=== PATIENT | male | born 1970 | race Hispanic/Latino ===

== ENCOUNTER 2017-01-11 16:06 | Inpatient (IN) | payer MEDICAID ==
--- NOTE | 2017-01-11 17:00 | C.PDOC ---
History Of Present Illness 46 y/o male presents to ED requesting detox from heroin and Benzo. Patient states last time used was x2 hours ago. Patient is pre-screened and denies ETOH or other substance use. No complaints of withdrawal at this time. Time Seen by Provider: 01/11/17 16:29 Chief Complaint (Nursing): Substance Abuse History Per: Patient History/Exam Limitations: no limitations Onset/Duration Of Symptoms: Hrs Current Symptoms Are (Timing): Still Present Past Medical History Reviewed: Historical Data, Nursing Documentation, Vital Signs Vital Signs: Last Vital Signs Temp 98.2 F 01/11/17 16:21 Pulse 104 H 01/11/17 16:21 Resp 20 01/11/17 16:21 BP 143/86 01/11/17 16:21 Pulse Ox 95 01/11/17 17:08 Family History: States: No Known Family Hx - Social History Hx Alcohol Use: Yes Hx Substance Use: Yes - Immunization History Hx Tetanus Toxoid Vaccination: No Hx Influenza Vaccination: No Review Of Systems Constitutional: Negative for: Fever, Chills Cardiovascular: Negative for: Chest Pain Respiratory: Negative for: Shortness of Breath Gastrointestinal: Negative for: Nausea, Vomiting, Diarrhea Neurological: Negative for: Headache Psych: Negative for: Anxiety Physical Exam - Physical Exam Appears: No Acute Distress Skin: Normal Color, Warm Head: Atraumatic, Normacephalic Eye(s): bilateral: Normal Inspection, PERRL, EOMI Oral Mucosa: Moist Cardiovascular: Rhythm Regular Respiratory: Normal Breath Sounds, No Rales, No Rhonchi, No Wheezing Gastrointestinal/Abdominal: Soft, No Tenderness, No Guarding, No Rebound Neurological/Psych: Oriented x3, Normal Speech, Normal Cognition, Other (No focal deficits) ED Course And Treatment - Laboratory Results Result Diagrams: 01/11/17 17:09 01/11/17 17:09 O2 Sat by Pulse Oximetry: 95 Medical Decision Making Medical Decision Making: Labs ordered and reviewed. In my clinical judgment patient is medically cleared and stable for detox admission. As per dockworker Bette patient was accepted to Dr Hilario service for detox of opiate use disorder Disposition Counseled Patient/Family Regarding: Need For Followup - Disposition Disposition: HOSPITALIZED Disposition Time: 18:18 Condition: STABLE - POA Present On Arrival: None - Clinical Impression Clinical Impression: Opiate dependence - PA / [employer] / Resident Statement /DO has reviewed & agrees with the documentation as recorded. - Scribe Statement The provider has reviewed the documentation as recorded by the Scribe Renny Kapadai All medical record entries made by the Sharitaibe were at my direction and personally dictated by me. I have reviewed the chart and agree that the record accurately reflects my personal performance of the history, physical exam, medical decision making, and the department course for this patient. I have also personally directed, reviewed, and agree with the discharge instructions and disposition. Decision To Admit - Pt Status Changed To: Hospital Disposition Of: Inpatient - Admit Certification Admit to Inpatient:: After my assessment, the patient will require hospitalization for at least two midnights. This is because of the severity of symptoms shown, intensity of services needed, and/or the medical risk in this patient being treated as an outpatient. - InPatient: Physician Admission Certification: I certify that this patient requires 2 or more midnights of care for the following reason:: Patient for inpatient detox of opiate use disorder under Dr Hilario service - . Bed Request Type: Detox Admitting Physician: Iveth Hilario Patient Diagnosis: Opiate dependence
[2017-01-11 17:13] LABS: BASO % 0.3 % (0.0-2.0); EOS # 0.1 K/uL (0.0-0.7); EOS % 1.3 % (0.0-4.0); HEMATOCRIT 42.3 % (35.0-51.0); LYMPH # 1.9 K/uL (1.0-4.3); LYMPH % 36.6 % (20.0-40.0); MEAN CELL VOLUME 92.2 fL (80.0-94.0); MEAN CORPUSCULAR HEMOGLOBIN 30.5 pg (27.0-31.0); MEAN CORPUSCULAR HGB CONC 33.1 g/dL (33.0-37.0); MEAN PLATELET VOLUME 7.3 fL (7.2-11.7); MONO # 0.3 K/uL (0.0-0.8); MONO % 5.1 % (0.0-10.0); NRBC % 0.1 % (0.0-2.0); RED CELL DISTRIBUTION WIDTH 15.1 % (11.5-14.5); WHITE BLOOD COUNT 5.2 K/uL (4.8-10.8)
[2017-01-11 17:19] LABS: RBC URINE 1 /hpf (0-3); URINE BILIRUBIN NEGATIVE (NEGATIVE); URINE BLOOD NEGATIVE (NEGATIVE); URINE COLOR Yellow (YELLOW); URINE GLUCOSE (UA) NORMAL (Normal); URINE KETONE NEGATIVE (NEGATIVE); URINE LEUKOCYTE ESTERASE NEG Leu/uL (Negative); URINE PROTEIN NEGATIVE (NEGATIVE); URINE UROBILINOGEN NORMAL mg/dL (0.2-1.0); WBC URINE < 1 /hpf (0-5)
[2017-01-11 18:07] LABS: CHLORIDE 98 mmol/L (98-107); POTASSIUM 4.3 mmol/L (3.6-5.2); SODIUM 139 mmol/L (132-148)
[2017-01-11 18:09] LABS: AST/SGOT 82 U/L (17-59); BILIRUBIN,TOTAL 0.6 mg/dL (0.2-1.3); CARBON DIOXIDE 31 mmol/L (22-30); GFR AFRICAN-AMERICAN > 60
[2017-01-11 18:10] LABS: ALKALINE PHOSPHATASE 57 U/L (38-126); ALT/SGPT 102 U/L (21-72); BLOOD UREA NITROGEN 10 mg/dL (9-20); CALCIUM 8.8 mg/dl (8.6-10.4); GLUCOSE,RANDOM 101 mg/dL (75-110); TOTAL PROTEIN 7.9 g/dL (6.3-8.3)
[2017-01-11 18:11] LABS: ALCOHOL SERUM < 10 mg/dl (0-10)
[2017-01-11 18:39] VITALS: RESP 18
--- NOTE | 2017-01-12 13:16 | PCM.PSYCH ---
Initial Psychiatric Evaluation - Initial Psychiatric Evaluation Type of Admission: Voluntary Legal Status: Capacity Chief Complaint (in patient's own words): "I feel alright." History of Present Illness and Precipitating Events: This is a 45yo male, long history of opiate abuse, came to the ED to get help in opiate detox. He states that he is single with 2 kids who live with him at [place]. 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 He states that he snorts about 5 bags of heroin a day for the past 15 years. He states that his longest sobriety was 6 months but no major life events contributed to his relapse. He states that he was in detox and rehab about 1 year ago in [place] and in [place]. He says that he drinks about 12 packs of alcohol every night and smokes a pack of cigarettes a day for the past 5 years. He attempted to quit cold turkey in the past but was unsuccessful. He has a history of probation and snf time, stating that he just got out of snf about a month ago for shoplifting. Currently he states that he feels alright and has no complaints. He denies nausea, vomiting, abdominal pain, and body aches. He also denies S/I, H/I, anxiety, and hallucinations. He states that he slept well, awakening twice to use the restroom. He appears tired but doesnt appear to be disorganized or disheveled. Past medical history: denies Past psych history: denies Family history: denies Medications: denies Allergies: denies Current Medications: Active Medications Generic Name Dose Route Start Last Admin Trade Name Adanq PRN Reason Stop Dose Admin Lorazepam 2 mg 01/11/17 18:45 01/12/17 13:12 Ativan PO 01/16/17 18:44 2 mg Q4 BOZENA Administration Taper Nicotine 1 patch 01/12/17 10:00 01/12/17 11:16 Nicoderm Cq TD Not Given DAILY BOZENA Trazodone HCl 50 mg 01/11/17 18:37 01/11/17 22:54 Desyrel PO 50 mg HS PRN Administration Insomnia Past Psychiatric History - Past Psychiatric History Previous Treatment History: Inpatient Pertinent Medical Hx (Current Medical&Sleep Prob, Allergies): Allergies Allergy/AdvReac Type Severity Reaction Status Date / Time FISH Allergy SWELLING Verified 01/12/17 13:16 No Known Home Med 01/11/17 Review of Systems - Review of Systems All systems: reviewed and no additional remarkable complaints except - Psychiatric Psychiatric: Anxiety, Irritability Mental Status Examination - Personal Presentation Personal Presentation: Looks stated age - Affect Affect: Constricted - Motor Activity Motor Activity: Calm - Reliability in Providing Information Reliability in Providing Information: Good - Speech Speech: Organized - Mood Mood: Anxious - Formal Thought Process Formal Thought Process: No Impairment - Cognitive Functions Orientation: Person, Place, Situation, Time Sensorium: Alert Attention/Concentration: Attentive Abstract Thinking: [place] Estimate of Intelligence: Below average Judgement: Imparied, as evidence by: Poor judgement, Intact, as evidence by: Insight regarding need for hospitalization - Risk Risk: Withdrawal, Diminished functioning - Strength & Assets Inventory Strength & Assets Inventory: Cooperative DSM 5 DX - DSM 5 DSM 5 Diagnosis: Opioid use disorder severe Opioid withdrawal Alcohol use disorder severe Alcohol withdrawal uncomplicated - Recommended/Plan of Treatment Treatment Recommendations and Plan of Treatment: Opioid use disorder severe CBT Psychoeducation Supportive therapy, individual therapy Use VT for abstinence Opioid withdrawal CBT Psychoeducation Supportive therapy, individual therapy Clonidine when necessary Subutax taper Alcohol use disorder severe CBT Psychoeducation Supportive therapy, individual therapy Use VT for abstinence Alcohol withdrawal uncomplicated CBT Psychoeducation Supportive therapy, individual therapy Ativan when necessary - Smoking Cessation Smoking Cessation Initiated: No
[2017-01-12] MEDS: Multiple Vitamins Tab PO SCH (13:37)
[2017-01-13] MEDS: Multiple Vitamins Tab PO SCH (11:02)
--- NOTE | 2017-01-13 18:13 | PCM.PYCHPN ---
Psychiatric Progress Note - Psychiatric Progress Note Patient seen today, length of contact: 15 minutes Patient Chief Complaint: I'm better with the treatment Problems Identified/Issues Discussed: Patient seen. Chart reviewed. Case discussed with the staff. Issues related to illness and treatment were discussed with the patient. Reported compliant with treatment with no adverse affects. Tolerating treatment very well. Patient is getting treatment only for benzos and alcohol withdrawal and not for opiate withdrawal as patient is scheduled to get his next Vivitrol shot. His time of evaluation, patient was awake alert oriented 3, had no delusions, no auditory or visual hallucinations, no suicidal ideations or homicidal ideations. Medical Problems: None reported Diagnostic Results: Reviewed DSM 5 Symptoms Update: Improvement with treatment Medication Change: No Medical Record Reviewed: Yes Mental Status Examination - Cognitive Function Orientation: Person, Place, Situation, Time Memory: Intact Attention: WNL Concentration: WNL Association: WNL Fund of Knowledge: [facility] Decription of patient's judgement and insights: Fair - Mood Mood: Neutral - Affect Affect: Other (Appropriate) - Speech Speech: Appropriate - Formal Thought Process Formal Thought Process: No Impairment Psychotic Thoughts and Behaviors: None - Suicidal Ideation Suicidal Ideation: No - Homicidal Ideation Homicidal Ideation: No Goal/Treatment Plan - Goal/Treatment Plan Need for Continued Stay: Remain at risks for inpatient hospitalization, Discharge may exacerbated symptoms, Severe functional impairment Progress Toward Problem(s) and Goals/Treatment Plan: Patient education Supportive therapy Continue treatment as before Estimated Date of D/C: 01/17/17 - Smoking Cessation Smoking Cessation Initiated: Yes
[2017-01-14] MEDS: Multiple Vitamins Tab PO SCH (11:19)
--- NOTE | 2017-01-14 12:11 | PCM.PYCHPN ---
Psychiatric Progress Note - Psychiatric Progress Note Patient seen today, length of contact: 15 minutes Patient Chief Complaint: I'm much better with the treatment Problems Identified/Issues Discussed: Patient seen. Chart reviewed. Case discussed with the staff. Issues related to illness and treatment were discussed with the patient. Reported compliant with treatment with no adverse affects. Tolerating treatment very well. Patient is getting treatment only for benzos and alcohol withdrawal and not for opiate withdrawal as patient is scheduled to get his next Vivitrol shot. His time of evaluation, patient was awake alert oriented 3, had no delusions, no auditory or visual hallucinations, no suicidal ideations or homicidal ideations. Medical Problems: None reported Diagnostic Results: Reviewed Medication Change: No Medical Record Reviewed: Yes Mental Status Examination - Cognitive Function Orientation: Person, Place, Situation, Time Memory: Intact Attention: WNL Concentration: WNL Association: WNL Fund of Knowledge: [facility] Decription of patient's judgement and insights: Fair - Mood Mood: Neutral - Affect Affect: Other (Appropriate) - Speech Speech: Appropriate - Formal Thought Process Formal Thought Process: No Impairment Psychotic Thoughts and Behaviors: None - Suicidal Ideation Suicidal Ideation: No - Homicidal Ideation Homicidal Ideation: No Goal/Treatment Plan - Goal/Treatment Plan Need for Continued Stay: Remain at risks for inpatient hospitalization, Discharge may exacerbated symptoms, Severe functional impairment Progress Toward Problem(s) and Goals/Treatment Plan: Patient education Supportive therapy Continue treatment as before Estimated Date of D/C: 01/17/17 - Smoking Cessation Smoking Cessation Initiated: Yes
[2017-01-15] MEDS: Multiple Vitamins Tab PO SCH (10:18)
--- NOTE | 2017-01-15 15:32 | PCM.PYCHPN ---
Psychiatric Progress Note - Psychiatric Progress Note Patient seen today, length of contact: 15 minutes Patient Chief Complaint: I'm much better with the treatment Problems Identified/Issues Discussed: Patient seen. Chart reviewed. Case discussed with the staff. Issues related to illness and treatment were discussed with the patient. Reported compliant with treatment with no adverse affects. Tolerating treatment very well. Patient is getting treatment only for benzos and alcohol withdrawal and not for opiate withdrawal as patient is scheduled to get his next Vivitrol shot. Most of the time patient stays in his room. Education provided to the patient to come out and socialize. His time of evaluation, patient was awake alert oriented 3, had no delusions, no auditory or visual hallucinations, no suicidal ideations or homicidal ideations. Medical Problems: None reported Diagnostic Results: Reviewed Medication Change: No Medical Record Reviewed: Yes Mental Status Examination - Cognitive Function Orientation: Person, Place, Situation, Time Memory: Intact Attention: WNL Concentration: WNL Association: WNL Fund of Knowledge: WN Decription of patient's judgement and insights: Fair - Mood Mood: Neutral - Affect Affect: Other (Appropriate) - Speech Speech: Appropriate - Formal Thought Process Formal Thought Process: No Impairment Psychotic Thoughts and Behaviors: None - Suicidal Ideation Suicidal Ideation: No - Homicidal Ideation Homicidal Ideation: No Goal/Treatment Plan - Goal/Treatment Plan Need for Continued Stay: Remain at risks for inpatient hospitalization, Discharge may exacerbated symptoms, Severe functional impairment Progress Toward Problem(s) and Goals/Treatment Plan: Patient education Supportive therapy Continue treatment as before Estimated Date of D/C: 01/17/17 - Smoking Cessation Smoking Cessation Initiated: Yes
--- NOTE | 2017-01-16 08:56 | PCM.PYCHDC ---
Mental Status Examination - Mental Status Examination Orientation: Person, Place, Situation, Time Memory: Intact Mood: Anxious Affect: Broad Speech: Appropriate Attention: WNL Concentration: WNL Association: WNL Fund of Knowledge: WNL Formal Thought Process: No Impairment Suicidal Ideation: No Current Homicidal Ideation?: No Discharge Summary - Discharge Note Reason for Hospitalization: Heroin and alcohol detox Consultations:: List each consultation separately and include: 1. Reason for request. 2. Findings. 3. Follow-up Summary of Hospital Course include:: 1. Description of specific treatment plan utilized for patients during their course of treatmen. 2. Summarize the time- course for resolution of acute symptoms and/or regressed behaviors. 3. Describe issues identified and worked on during hospitalization. 4. Describe medication utilized. 5. Describe medical problems identified and treated. 6. Reassessment of suicide risk Summary of Hospital Course: Hospital course: The pt was admitted and started on treatment with psychotherapy, support, psychoeducation and medications. IN and CBT used. The pt attended groups and activities, as well as milieu therapy. All the risks and benefits of medications are discussed and the patient understood and agreed. After care discussed with the patient. He chose to go t Vivitrol shot by his MD. He was cooperative in general but unmotivated - Final Diagnosis (DSM 5) Condition upon Discharge: STABLE DSM 5: Opioid use disorder severe Opioid withdrawal Alcohol use disorder severe Alcohol withdrawal uncomplicated Disposition: HOME/ ROUTINE Follow-up Treatment Plan: Continue below medications after discharge. Follow after care plan as discussed: Vivitrol shot by PCP Use relapse prevention skills Return to ER or call 911 if suicidal, homicidal or symptoms relapse. Stay away from stress, alcohol and drugs. Prescriptions/Medication Reconciliation: traZODone [Desyrel] 50 mg PO HS PRN #30 tab PRN Reason: Insomnia - Smoking Cessation Smoking Cessation Medication prescribed: No - Antipsychotic Medications Pt discharged on 2 or more routine antipsychotic medications: No
[2017-01-16 09:07] VITALS: BP 110/70; PULSE 79; TEMP 97.9; O2SAT 97
[2017-01-16] MEDS: Multiple Vitamins Tab PO SCH (09:29)
== END 2017-01-16 12:35 | disposition home or self-care (01) | DRG 745 ==
LOC: C.ER 16:06 → C.7D 18:17
PROVIDERS: ADMIT Psychiatry & Neurology Psychiatry; ATTEND Psychiatry & Neurology Psychiatry
PROC: HZ2ZZZZ Detoxification Services for Substance Abuse Treatment (ICD-10-PCS; principal; 2017-01-11)
PROC: HZ59ZZZ Individual Psychotherapy for Substance Abuse Treatment, Supportive (ICD-10-PCS; 2017-01-11)
DX: F11.23 Opioid dependence with withdrawal (principal); F10.230 Alcohol dependence with withdrawal, uncomplicated; F17.210 Nicotine dependence, cigarettes, uncomplicated